=== PATIENT | male | born 1955 | race Caucasian/White ===

== ENCOUNTER 2016-04-08 15:33 | Inpatient (IN) | payer MEDICAID, MEDICARE ==
[~2016-04-08] VITALS: Ht 172.7 cm; Wt 95.7 kg
[~2016-04-08 15:33] MED LIST: ASPIR 8181 MG PO; JANUVIA100 MG PO; KEFLEX250 MG PO; LOPRESSOR25 MG PO; NORCO 5/325 MG1 TAB PO; TRICOR145 MG PO; ZESTRIL20 MG PO; ZOCOR20 MG PO
[2016-04-08 16:07] VITALS: BP 187/111
[2016-04-08] MEDS ORDERED: MICRONASE5 M1 PO (16:14)
[2016-04-08] MEDS ORDERED: ASPIRIN ADULT L81 M1 PO (16:14)
--- NOTE | 2016-04-08 16:25 | NUR ---
PT AMBULATED TO BED 8
[2016-04-08] MEDS ORDERED: fentaNYL 0.05 MG/ML VIAL IVP ONE (16:30)
[2016-04-08] MEDS ORDERED: ASPIRIN 325 MG TAB PO ONE (16:30)
[2016-04-08] MEDS ORDERED: NITROGLYCERIN 0.4 MG TAB SL ONE (16:30)
--- NOTE | 2016-04-08 16:33 | NUR ---
60/M TO ED WITH C/O CHEST PAIN X3 HOURS. PT STATES PAIN IS PRESSURE PAIN 7/10. DENIES SOB. PAIN RADIATING TO NECK. NO EDEMA PRESENT. CAP REFILL < 3 SECS. LUNGS CLEAR BILAT. HR EVEN AND REGULAR. AAOX4. VSS. NO SIGNS OF DISTRESS.
--- NOTE | 2016-04-08 17:23 | NUR ---
DR. BARBER AT BEDSIDE EVALUATING PT AT THIS TIME.
[2016-04-08] MEDS ORDERED: ONDANSETRON 4 MG/2 ML VIAL IVP PRN (17:35)
[2016-04-08] MEDS ORDERED: DEXTROSE 50% 50 ML SYR IVP PRN (17:35)
[2016-04-08] MEDS ORDERED: ACETAMINOPHEN 325 MG TAB PO PRN (17:35)
[2016-04-08] MEDS ORDERED: LORazepam 1 MG TAB PO PRN (17:35)
[2016-04-08] MEDS ORDERED: NITROGLYCERIN 0.4 MG TAB SL PRN (17:35)
[2016-04-08] MEDS ORDERED: ALBUTEROL 0.083% 2.5 MG/3 ML NEBU IH PRN (17:35)
[2016-04-08] MEDS ORDERED: MORPHINE SULFATE 2 MG/ML SYR IVP PRN (17:35)
[2016-04-08] MEDS ORDERED: ZOLPIDEM 5 MG TAB PO PRN (17:35)
--- NOTE | 2016-04-08 18:26 | NUR ---
Patient will be admitted to care of DR LUZ. Admited to TELE. Will go to [id number]. Belongings list completed. Report to TONY.
[2016-04-08] MEDS ORDERED: REGADENOSON 0.4 MG/5 ML SYR IV ONE (18:45)
[2016-04-08 18:47] VITALS: BP 145/84
--- NOTE | 2016-04-08 18:47 | NUR ---
PT ON UNIT. NO S/S OF ACUTE DISTRESS. PT DENIES PAIN. IV SITE PATENT AND INTACT. CALL LIGHT WITHIN REACH. SAFETY MEASURES ENSURED. PT ORIENTED TO ROOM. WILL CONTINUE TO MONITOR.
[2016-04-08] MEDS ORDERED: ISOSORBIDE MONONITRATE 30 MG TABER PO SCH ×2 (18:49→21:00)
--- NOTE | 2016-04-08 19:14 | NUR ---
ENDORSED PLAN OF CARE TO NIGHT RN. PT REMAINS IN STABLE CONDITION.
[2016-04-08] MEDS: IPRATROPIUM 0.02% 0.5 MG/2.5 ML NEBU IH SCH (19:53)
[2016-04-08] MEDS: ALBUTEROL 0.083% 2.5 MG/3 ML NEBU IH SCH (19:54)
[2016-04-08 20:00] VITALS: BP 126/70
[2016-04-08] MEDS ORDERED: ENOXAPARIN 100 MG/ML SYR SUBQ SCH (21:00)
[2016-04-08] MEDS ORDERED: SIMVASTATIN 20 MG TAB PO SCH (21:00)
[2016-04-08] MEDS: METOPROLOL 25 MG TAB PO SCH (21:00)
[2016-04-08] MEDS: BLOOD GLUCOSE MONITORING 1 DEV DEV FS SCH (21:20)
[2016-04-08] MEDS: ISOSORBIDE MONONITRATE 30 MG TABER PO SCH (21:21)
[2016-04-08] MEDS: INSULIN ASPART SLIDING SCALE 100 UNITS/ML VIAL SUBQ PRN (21:23)
--- NOTE | 2016-04-08 21:29 | NUR ---
PM MEDS ADMINISTERED, PATIENT TOLERATED WELL, PT C/O "A LITTLE" CHEST PAIN, ADMINISTERED NITROSTAT SL X2. PATIENT STATES HIS PAIN IS NOW GONE. CALL LIGHT WITHIN REACH WILL CONTINUE TO MONITOR.
--- NOTE | 2016-04-08 21:38 | NUR ---
LOPRESSOR NON ADMINISTERED DT LOW BP 94/55 HR 88
[2016-04-09] VITALS: BP 87/44
[2016-04-09] MEDS ORDERED: PNEUMOCOCCAL VACCINE 23 MCG/0.5 ML VIAL IMVAC PRN
[2016-04-09] MEDS ORDERED: INFLUENZA VIRUS VACCINE QUAD 0.5 ML SYR IMVAC PRN
--- NOTE | 2016-04-09 00:42 | NUR ---
PAGED DR CALERO CANTEEN OPERATOR FOR DR BARBER. PATIENTS BP TAKEN MULTIPLE TIMES AND IS 87/44, 85/49 WITH HR IN THE 80'S. DR CALERO ORDERED 1L NS BOLUS AND AFTER TO HAS PATIENT ON FLUIDS ON NS AT 100ML/H.
[2016-04-09] MEDS: NACL 0.9% 1,000 ML IV SCH ×2 (00:50→10:50)
[2016-04-09] MEDS: IPRATROPIUM 0.02% 0.5 MG/2.5 ML NEBU IH SCH ×2 (00:50→07:53)
[2016-04-09] MEDS ORDERED: NACL 0.9% 1,000 ML IV ONE (00:50)
[2016-04-09] MEDS: ALBUTEROL 0.083% 2.5 MG/3 ML NEBU IH SCH ×2 (00:50→07:53)
--- NOTE | 2016-04-09 02:13 | NUR ---
PAGED DR SMITH NOTIFIED HIM OF PATIENT'S CRITICAL LAB OF [facility] 0.104, DR SMITH GAVE ORDERS TO CANCEL THE LEXISCAN AND HOLD LOVENOX. AND TO ORDER EKG FOR THE AM. WILL FOLLOW UP WITH ORDERS.
--- NOTE | 2016-04-09 03:15 | NUR ---
PATIENT'S BP INCREASED OT 92/54. PATIENT ASYMPTOMATIC, SLEEPING COMFORTABLE. NO SIGN OF DISTRESS, CALL LIGHT WITHIN REACH. WILL CONTINUE TO MONITOR.
[2016-04-09 04:00] VITALS: BP 100/59
--- NOTE | 2016-04-09 04:30 | NUR ---
PATIENT SLEEPING, NO SOB OR SIGN OF DISTRESS. CALL LIGHT WITHIN REACH. WILL CONTINUE TO MONITOR. VITAL SIGNS STABLE, PATIENT'S BP IS 100/59 HR 87.
--- NOTE | 2016-04-09 06:00 | NUR ---
PATIENT SLEEPING, NO SOB OR SIGN OF DISTRESS, CALL LIGHT WITHIN REACH. WILL CONTINUE TO MONITOR.
--- NOTE | 2016-04-09 07:40 | NUR ---
ENDORSED PATIENT TO DAY SHIFT RN, PATIENT IN STABLE CONDITION RESTING IN BED. IVF INFUSING WELL.
[2016-04-09] MEDS: INSULIN ASPART SLIDING SCALE 100 UNITS/ML VIAL SUBQ PRN (07:51)
[2016-04-09] MEDS: BLOOD GLUCOSE MONITORING 1 DEV DEV FS SCH ×2 (07:52→11:23)
[2016-04-09 08:00] VITALS: BP 114/67
[2016-04-09] MEDS: ASPIRIN 81 MG TAB.CHEW PO SCH ×2 (08:00→09:00)
--- NOTE | 2016-04-09 08:00 | NUR ---
RECEIVED REPORT FROM CHARGE NURSE. PT RESTING IN BED. AAOX4. NO S/S OF ACUTE DISTRESS. PT DENIES PAIN. IV SITE PATENT AND INTACT. CALL LIGHT WITHIN REACH. SAFETY MEASURES ENSURED. WILL CONTINUE TO MONITOR.
[2016-04-09] MEDS: ISOSORBIDE MONONITRATE 30 MG TABER PO SCH (08:31)
[2016-04-09] MEDS: METOPROLOL 25 MG TAB PO SCH (08:31)
--- NOTE | 2016-04-09 08:54 | NUR ---
CALLED AND SPOKE WITH PT'S DAUGHTER LAKESHIA REGARDING PT'S TRANSFER TO [facility]. DAUGHTER VERBALIZES UNDERSTANDING.
[2016-04-09 08:58] VITALS: BP 114/62
[2016-04-09] MEDS ORDERED: DOCUSATE SODIUM 100 MG GELCAP PO SCH (09:00)
[2016-04-09] MEDS ORDERED: LISINOPRIL 5 MG TAB PO SCH (09:00)
[2016-04-09] MEDS ORDERED: LISINOPRIL 20 MG TAB PO SCH (09:00)
[2016-04-09] MEDS ORDERED: SIMVASTATIN 20 MG TAB PO SCH (09:00)
--- NOTE | 2016-04-09 09:18 | NUR ---
DR. SMITH IN TO SEE PT. PT MADE AWARE OF TRANSFER TO [facility] AND UPCOMING PROCEDURE. PT VERBALIZED UNDERSTANDING. REPORT GIVEN TO PREMA ZHENG AT [facility].
--- NOTE | 2016-04-09 09:21 | NUR ---
PATIENT HAS BEEN SCREENED AND CATEGORIZED HIGH NUTRITION RISK. PATIENT WILL BE SEEN WITHIN 1-2 DAYS OF ADMISSION. 04/09/16-04/10/[address]
--- NOTE | 2016-04-09 09:55 | NUR ---
RECEIVED ORDER FOR PATIENT TO GO TO [facility] FOR CARDIAC CATH. I CALLED LIA AT [facility] AND SHE SAID SHE HAD THE FACE SHEET AND HE SHOULD GET THERE BY 12:30P.M. SHE SAID SHE WOULD NEED AUTH FROM [facility]. I FAXED HER THE INFORMATION SHE NEEDED INCLUDING THE ORDER. I PUT A CALL IN TO STEFAN ROJO, . WAITING FOR CALL BACK. FAXED INITIAL REVIEW TO [facility] [phone] PHONE STEFAN [phone].
--- NOTE | 2016-04-09 10:07 | NUR ---
PT RESTING IN BED. NO S/S OF ACUTE DISTRESS. PT DENIES PAIN. CALL LIGHT WITHIN REACH. WILL CONTINUE TO MONITOR.
--- NOTE | 2016-04-09 10:38 | NUR ---
CALLED [facility] AND SPOKE WITH SIDNEY, PEDORTHIST. THE AUTH FOR [facility] IS [id number]. THE AUTH FOR [facility] IS [id number]. I CALLED DARIUS TO [facility] BRUSH MAKER MACHINE AND GAVE HER THE AUTH NUMBER. I CALLED [facility] AND SET UP TRANSPORT,ALS, FOR 12:00 P.M. (NOON). JOCELYNE ZHENGGLAUCOMA SPECIALIST NURSE AWARE.
[2016-04-09 10:44] VITALS: BP 114/62
--- NOTE | 2016-04-09 10:51 | NUR ---
ENDORSED PLAN OF CARE TO RN. PT REMAINS IN STABLE CONDITION.
--- NOTE | 2016-04-09 11:15 | NUR ---
ADMINISTERED FLU AND PNA VACCINE. WILL REASSESS FOR ANY ADVERSE REACTION.
[2016-04-09] MEDS ORDERED: INSULIN ASPART, RECOMBINANT 100 UNITS/ML VIAL SUBQ SCH (11:42)
[2016-04-09 12:00] VITALS: BP 113/68
--- NOTE | 2016-04-09 12:05 | NUR ---
BS 422, NOTIFIED DR BARBER BY TELEPHONE. INSULIN ASPART 14 UNITS GIVEN SUBQ AT THIS TIME ORDERED WITH EDUCATION, PT TOLERATED WELL.
--- NOTE | 2016-04-09 12:10 | NUR ---
TRANSFERRED PT TO [facility] AT THIS TIME VIA [facility], VSS, STABLE CONDITION.
[2016-04-09] MEDS ORDERED: REGADENOSON 0.4 MG/5 ML SYR IV ONE (12:35)
== END 2016-04-09 12:10 | disposition short-term general hospital (02) | DRG 281 ==
LOC: MED 15:33 → MTU 17:30
PROVIDERS: ADMIT Hospitalist; ATTEND Hospitalist
DX: I21.4 Non-ST elevation (NSTEMI) myocardial infarction (principal); I13.0 Hypertensive heart and chronic kidney disease with heart failure and stage 1 through stage 4 chronic kidney disease, or unspecified chronic kidney disease; N18.9 Chronic kidney disease, unspecified; E11.65 Type 2 diabetes mellitus with hyperglycemia; E11.22 Type 2 diabetes mellitus with diabetic chronic kidney disease; E78.5 Hyperlipidemia, unspecified; I25.10 Atherosclerotic heart disease of native coronary artery without angina pectoris; I50.9 Heart failure, unspecified; I25.2 Old myocardial infarction; Z79.899 Other long term (current) drug therapy; Z83.3 Family history of diabetes mellitus

== ENCOUNTER 2017-06-17 15:06 | Emergency (ER) | payer MEDICARE ==
[~2017-06-17] VITALS: Ht 172.7 cm; Wt 92.1 kg
[~2017-06-17 15:06] MED LIST changes: -ASPIR 8181 MG PO; +FENO145T PO; -JANUVIA100 MG PO; -KEFLEX250 MG PO; +LISI-420 PO; -LOPRESSOR25 MG PO; +METO25TA PO; +MIC5 PO; -NORCO 5/325 MG1 TAB PO; +SIMV20TA1 PO; +SITA100T8 PO; -TRICOR145 MG PO; -ZESTRIL20 MG PO; -ZOCOR20 MG PO
[2017-06-17 15:19] VITALS: BP 157/86
[2017-06-17] MEDS ORDERED: CARV3.12 PO (15:24)
[2017-06-17] MEDS ORDERED: ISOS20TA13 PO (15:24)
[2017-06-17] MEDS ORDERED: ASPI81CT89 PO (15:24)
[2017-06-17] MEDS ORDERED: IBUPROFEN 600 MG TAB PO ONE (16:05)
[2017-06-17 16:09] LABS: APPEARANCE,URINE CLEAR (CLEAR); BILIRUBIN,URINE NEGATIVE (NEGATIVE); BLOOD, URINE NEGATIVE (NEGATIVE); COLOR,URINE YELLOW (YELLOW); LEUKOCYTE ESTERASE ,URINE TRACE (NEGATIVE); NITRITE, URINE NEGATIVE (NEGATIVE); UGLUCOSE 3+ (NEGATIVE)
[2017-06-17 16:23] LABS: RBC,URINE 0-5 (RARE) /HPF (0-5)
[2017-06-17 17:06] VITALS: BP 148/82
== END 2017-06-17 17:06 | disposition home or self-care (01) ==
LOC: MED 15:06
DX: N39.0 Urinary tract infection, site not specified (principal); E11.9 Type 2 diabetes mellitus without complications; I10 Essential (primary) hypertension
CPT/HCPCS: 72100; 81001; 87086; 99285

== ENCOUNTER 2022-12-04 00:11 | Inpatient (IN) | payer MEDICARE, OTHER ==
[~2022-12-04] VITALS: Ht 182.9 cm; Wt 90.7 kg
[2022-12-04] VITALS (14 sets, daily range): BP systolic 93–186; BP diastolic 42–97; PULSE 60–118; RESP 16–44; TEMP 96.8–98.2; O2SAT 93–99
[~2022-12-04 00:11] MED LIST changes: +ASPI-1822 PO; +CARV3.12 PO; +GLYB5TAB PO; +ISOS20TA13 PO; -LISI-420 PO; +LISI-487 PO; -METO25TA PO; -MIC5 PO; +SIMV-372 PO; -SIMV20TA1 PO
[2022-12-04 00:34] LABS: BASOPHILS # (AUTO) 0.2 K/uL (0.00-0.22); EOSINOPHILS # (AUTO) 0.2 K/uL (0-0.4); EOSINOPHILS % (AUTO) 1.3 % (0.0-4.0); HEMOGLOBIN 10.8 g/dL (12.0-18.0); LYMPHOCYTES # (AUTO) 3.3 K/uL (2.0-11.5); LYMPHOCYTES % (AUTO) 21.7 % (20.5-51.1); MEAN CORPUSCULAR HEMOGLOBIN 31 pg (27-31); MEAN CORPUSCULAR HGB CONC 33 g/dL (33-37); MEAN CORPUSCULAR VOLUME 93.2 fL (80-94); NEUTROPHILS # (AUTO) 10.4 K/uL (1.8-7.7); PLATELET COUNT (AUTO) 325 K/uL (140-450); RED BLOOD CELL COUNT(AUTO) 3.54 MIL/uL (4.20-6.10); RED CELL DISTRIBUTION WIDTH 14.6 % (11.6-13.7)
[2022-12-04] MEDS ORDERED: NITROGLYCERIN 50 MG/D5W PREMIX 250 ML IV ONE (00:40)
[2022-12-04] MEDS ORDERED: AZITHROMYCIN 500 MG in DEXTROSE 5% 250 ML IV ONE (00:45)
[2022-12-04] MEDS ORDERED: MORPHINE SULFATE 2 MG/ML SYR IVP ONE (00:50)
[2022-12-04 00:51] LABS: ALBUMIN 4.1 g/dL (3.4-5.0); ANION GAP 14.2 (8-16); CALCIUM 9.3 mg/dL (8.5-10.1); CARBON DIOXIDE 22.4 mmol/L (21-32); CREATININE 1.6 mg/dL (0.6-1.3); POTASSIUM 4.6 mmol/L (3.5-5.1); TOTAL BILIRUBIN 0.5 mg/dL (0.0-1.0); TOTAL PROTEIN, SERUM 8.6 g/dL (6.4-8.2)
[2022-12-04 00:56] LABS: FLU A ANTIGEN negative (NEGATIVE); FLU B ANTIGEN NEGATIVE (NEGATIVE)
[2022-12-04] MEDS ORDERED: cefTRIAXone 1,000 MG VIAL ONE (00:56)
[2022-12-04 00:58] LABS: LACTIC ACID 2.8 mmol/L (0.4-2.0)
[2022-12-04] MEDS ORDERED: ASPIRIN 81 MG TAB.CHEW PO ONE (01:00)
[2022-12-04] MEDS ORDERED: AZITHROMYCIN 500 MG INJ VIAL IV ONE (01:19)
[2022-12-04] MEDS ORDERED: ATOR40TA40 PO (01:44)
[2022-12-04] MEDS ORDERED: INSU500S1 SQ (01:44)
[2022-12-04] MEDS ORDERED: METF-352 PO (01:44)
[2022-12-04] MEDS ORDERED: SACU1TAB PO (01:44)
[2022-12-04] MEDS ORDERED: ACETAMINOPHEN EXTRA STRENGTH 500 MG TAB PO ONE (02:05)
[2022-12-04] MEDS ORDERED: POTASSIUM CHLORIDE 10 MEQ TABER PO PRN (03:55)
[2022-12-04] MEDS ORDERED: MORPHINE SULFATE 4 MG/ML SYR IVP PRN (03:55)
[2022-12-04] MEDS ORDERED: HYDROcodone/APAP 5/325 MG 1 TAB TAB PO PRN (03:55)
[2022-12-04] MEDS ORDERED: ACETAMINOPHEN 325 MG TAB PO PRN (03:55)
[2022-12-04] MEDS: AZITHROMYCIN 500 MG in DEXTROSE 5% 250 ML IV SCH (03:55)
[2022-12-04] MEDS ORDERED: ONDANSETRON 4 MG/2 ML VIAL IVP PRN (03:55)
[2022-12-04] MEDS: ALBUTEROL SULFATE/IPRATROPIU 3 ML SOL IH SCH ×3 (07:09→19:27)
[2022-12-04] MEDS ORDERED: HEPARIN PER PHARMACY MC PRN (08:15)
[2022-12-04 08:17] LABS: BLOOD GAS HCO3 21.5 mmol/L (22-26); BLOOD GAS O2 SAT% 95.9 % (92.0-98.5); BLOOD GAS PCO2 31.8 mmHg (35-45); BLOOD GAS PO2 76.1 mmHg (75-100)
[2022-12-04 08:20] LABS: BLOOD GAS PH 7.448 (7.35-7.45)
[2022-12-04] MEDS ORDERED: methylPREDNISolone SS 125 MG/2 ML VIAL IVP SCH (09:00)
[2022-12-04 10:18] LABS: INR 1.05 (0.8-1.2); PARTIAL THROMBOPLASTIN TIME 23.5 secs (22-35.6)
[2022-12-04] MEDS: FUROSEMIDE 40 MG/4 ML VIAL IVP SCH ×2 (10:59→20:31)
[2022-12-04] MEDS: hePARIN / DEXT 5% PREMIX 250 ML IV SCH ×2 (11:25→18:21)
[2022-12-04 16:24] LABS: APPEARANCE,URINE CLEAR (CLEAR); BILIRUBIN,URINE NEGATIVE (NEGATIVE); BLOOD, URINE NEGATIVE (NEGATIVE); COLOR,URINE YELLOW (YELLOW); LEUKOCYTE ESTERASE ,URINE NEGATIVE (NEGATIVE); NITRITE, URINE NEGATIVE (NEGATIVE); PROTEIN,URINE NEGATIVE (NEGATIVE); UGLUCOSE NEGATIVE (NEGATIVE); UROBILINOGEN,URINE 0.2 EU/dL (0.2 - 1)
[2022-12-04 17:13] LABS: URINE TOTAL PROTEIN 3.9 mg/dL (0-12); URINE TPRO CREAT RATIO 0.2 (0-0.20)
[2022-12-04 17:26] LABS: INR 1.19 (0.8-1.2); PARTIAL THROMBOPLASTIN TIME 33.6 secs (22-35.6); PROTHROMBIN TIME 12.4 secs (10.8-13.4)
[2022-12-05] VITALS (10 sets, daily range): BP systolic 102–126; BP diastolic 51–68; PULSE 76–90; RESP 16–18; TEMP 97.1–98.6; O2SAT 92–98
[2022-12-05] MEDS: ALBUTEROL SULFATE/IPRATROPIU 3 ML SOL IH SCH ×4 (01:34→19:00)
[2022-12-05] MEDS: hePARIN / DEXT 5% PREMIX 250 ML IV SCH ×4 (01:50→23:25)
[2022-12-05] MEDS: AZITHROMYCIN 500 MG in DEXTROSE 5% 250 ML IV SCH (03:56)
[2022-12-05 06:50] LABS: BASOPHILS % (AUTO) 0.1 % (0.0-2.0); HEMATOCRIT 25.4 % (36-52); HEMOGLOBIN 8.3 g/dL (12.0-18.0); LYMPHOCYTES # (AUTO) 0.7 K/uL (2.0-11.5); LYMPHOCYTES % (AUTO) 8.9 % (20.5-51.1); MEAN CORPUSCULAR HEMOGLOBIN 30 pg (27-31); MEAN CORPUSCULAR HGB CONC 33 g/dL (33-37); MEAN CORPUSCULAR VOLUME 92.6 fL (80-94); MONOCYTES # (AUTO) 0.7 K/uL (0.8-1.0); MONOCYTES % (AUTO) 8.8 % (1.7-9.3); NEUTROPHILS # (AUTO) 6.7 K/uL (1.8-7.7); NEUTROPHILS % (AUTO) 82.2 % (42.2-75.2); PLATELET COUNT (AUTO) 225 K/uL (140-450); RED BLOOD CELL COUNT(AUTO) 2.74 MIL/uL (4.20-6.10); WHITE BLOOD COUNT (AUTO) 8.2 K/uL (4.8-10.8)
[2022-12-05 07:06] LABS: ALBUMIN 3.2 g/dL (3.4-5.0); CALCIUM 8.9 mg/dL (8.5-10.1); CARBON DIOXIDE 20.9 mmol/L (21-32); CREATININE 2.3 mg/dL (0.6-1.3); MAGNESIUM 2.3 mg/dL (1.8-2.4); POTASSIUM 4.9 mmol/L (3.5-5.1); TOTAL BILIRUBIN 0.3 mg/dL (0.0-1.0); TOTAL PROTEIN, SERUM 7.3 g/dL (6.4-8.2)
[2022-12-05] MEDS ORDERED: DEXTROSE 50% 50 ML SYR IVP PRN (07:35)
[2022-12-05] MEDS ORDERED: INSULIN LISPRO 100 UNITS/ML VIAL SUBQ SCH ×2 (08:30→12:00)
[2022-12-05] MEDS: predniSONE 20 MG TAB PO SCH (08:57)
[2022-12-05] MEDS: FUROSEMIDE 40 MG/4 ML VIAL IVP SCH (08:57)
[2022-12-05] MEDS: INSULIN LANTUS 100 UNITS/ML 10 ML VIAL SUBQ SCH (09:01)
[2022-12-05] MEDS: BLOOD GLUCOSE MONITORING 1 DEV DEV FS SCH ×3 (12:14→20:19)
[2022-12-05] MEDS: ALBUMIN HUMAN 25% 100 ML IV SCH ×2 (12:17→20:25)
[2022-12-05] MEDS: INSULIN LISPRO 100 UNITS/ML VIAL SUBQ SCH ×2 (12:27→16:42)
[2022-12-05] MEDS: INSULIN LISPRO SLIDING SCALE 100 UNITS/ML VIAL SUBQ PRN ×3 (12:32→21:10)
[2022-12-05] MEDS ORDERED: INSULIN LISPRO 100 UNITS/ML VIAL SUBQ ONE (13:00)
[2022-12-05] MEDS: ATORVASTATIN 20 MG TAB PO SCH (20:23)
[2022-12-05] MEDS: carvediloL 3.125 MG TAB PO SCH (20:23)
[2022-12-06] VITALS (10 sets, daily range): BP systolic 113–121; BP diastolic 62–67; PULSE 73–89; RESP 15–18; TEMP 97.1–98.7; O2SAT 92–97
[2022-12-06] MEDS: ALBUTEROL SULFATE/IPRATROPIU 3 ML SOL IH SCH ×4 (00:45→18:59)
[2022-12-06] MEDS: hePARIN / DEXT 5% PREMIX 250 ML IV SCH ×2 (04:10→05:36)
[2022-12-06] MEDS: AZITHROMYCIN 500 MG in DEXTROSE 5% 250 ML IV SCH (04:14)
[2022-12-06 05:14] LABS: BASOPHILS % (AUTO) 0.6 % (0.0-2.0); HEMATOCRIT 23.3 % (36-52); HEMOGLOBIN 7.9 g/dL (12.0-18.0); LYMPHOCYTES # (AUTO) 1.5 K/uL (2.0-11.5); LYMPHOCYTES % (AUTO) 20.3 % (20.5-51.1); MEAN CORPUSCULAR HEMOGLOBIN 31 pg (27-31); MEAN CORPUSCULAR HGB CONC 34 g/dL (33-37); MONOCYTES % (AUTO) 12.5 % (1.7-9.3); NEUTROPHILS # (AUTO) 5.1 K/uL (1.8-7.7); NEUTROPHILS % (AUTO) 66.6 % (42.2-75.2); PLATELET COUNT (AUTO) 227 K/uL (140-450); RED BLOOD CELL COUNT(AUTO) 2.56 MIL/uL (4.20-6.10); RED CELL DISTRIBUTION WIDTH 14.3 % (11.6-13.7); WHITE BLOOD COUNT (AUTO) 7.6 K/uL (4.8-10.8)
[2022-12-06] MEDS: ALBUMIN HUMAN 25% 100 ML IV SCH (05:25)
[2022-12-06 05:37] LABS: ALBUMIN 3.8 g/dL (3.4-5.0); ANION GAP 13.7 (8-16); CARBON DIOXIDE 24.7 mmol/L (21-32); MAGNESIUM 2.8 mg/dL (1.8-2.4); POTASSIUM 4.4 mmol/L (3.5-5.1); TOTAL BILIRUBIN 0.4 mg/dL (0.0-1.0); TOTAL PROTEIN, SERUM 7.6 g/dL (6.4-8.2)
[2022-12-06] MEDS: BLOOD GLUCOSE MONITORING 1 DEV DEV FS SCH ×4 (06:31→20:36)
[2022-12-06] MEDS: INSULIN LISPRO SLIDING SCALE 100 UNITS/ML VIAL SUBQ PRN ×4 (06:40→20:32)
[2022-12-06] MEDS: FUROSEMIDE 40 MG/4 ML VIAL IVP SCH (08:56)
[2022-12-06] MEDS: carvediloL 3.125 MG TAB PO SCH ×2 (08:57→20:34)
[2022-12-06] MEDS: predniSONE 20 MG TAB PO SCH (08:58)
[2022-12-06] MEDS ORDERED: FUROSEMIDE 40 MG/4 ML VIAL IVP SCH (09:00)
[2022-12-06] MEDS: INSULIN LISPRO 100 UNITS/ML VIAL SUBQ SCH ×3 (09:00→17:20)
[2022-12-06] MEDS: INSULIN LANTUS 100 UNITS/ML 10 ML VIAL SUBQ SCH (09:01)
[2022-12-06] MEDS: ATORVASTATIN 20 MG TAB PO SCH (20:36)
[2022-12-07] VITALS (8 sets, daily range): BP systolic 107–120; BP diastolic 59–68; PULSE 64–83; RESP 15–20; TEMP 96.8–98.1; O2SAT 90–97
[2022-12-07] MEDS: hePARIN / DEXT 5% PREMIX 250 ML IV SCH (00:32)
[2022-12-07] MEDS: ALBUTEROL SULFATE/IPRATROPIU 3 ML SOL IH SCH ×3 (00:45→13:12)
[2022-12-07] MEDS: AZITHROMYCIN 500 MG in DEXTROSE 5% 250 ML IV SCH (04:03)
[2022-12-07 06:01] LABS: ALBUMIN 3.8 g/dL (3.4-5.0); CALCIUM 9.4 mg/dL (8.5-10.1); CARBON DIOXIDE 24.3 mmol/L (21-32); CREATININE 1.8 mg/dL (0.6-1.3); MAGNESIUM 2.8 mg/dL (1.8-2.4); POTASSIUM 4.3 mmol/L (3.5-5.1); TOTAL BILIRUBIN 0.6 mg/dL (0.0-1.0); TOTAL PROTEIN, SERUM 7.6 g/dL (6.4-8.2)
[2022-12-07 06:21] LABS: BASOPHILS % (AUTO) 0.3 % (0.0-2.0); EOSINOPHILS % (AUTO) 0.2 % (0.0-4.0); HEMATOCRIT 24.6 % (36-52); HEMOGLOBIN 8.1 g/dL (12.0-18.0); LYMPHOCYTES # (AUTO) 2.3 K/uL (2.0-11.5); MEAN CORPUSCULAR HEMOGLOBIN 30 pg (27-31); MEAN CORPUSCULAR HGB CONC 33 g/dL (33-37); MEAN CORPUSCULAR VOLUME 91.7 fL (80-94); MONOCYTES # (AUTO) 0.8 K/uL (0.8-1.0); MONOCYTES % (AUTO) 9.8 % (1.7-9.3); NEUTROPHILS % (AUTO) 61.7 % (42.2-75.2); PLATELET COUNT (AUTO) 221 K/uL (140-450); RED BLOOD CELL COUNT(AUTO) 2.69 MIL/uL (4.20-6.10); RED CELL DISTRIBUTION WIDTH 14.3 % (11.6-13.7)
[2022-12-07] MEDS: INSULIN LISPRO SLIDING SCALE 100 UNITS/ML VIAL SUBQ PRN ×3 (06:48→17:35)
[2022-12-07] MEDS: BLOOD GLUCOSE MONITORING 1 DEV DEV FS SCH ×3 (06:50→17:20)
[2022-12-07] MEDS ORDERED: ECOTRIN 81 MG TABEC PO SCH (09:00)
[2022-12-07] MEDS: carvediloL 3.125 MG TAB PO SCH (09:55)
[2022-12-07] MEDS: predniSONE 20 MG TAB PO SCH (09:55)
[2022-12-07] MEDS: INSULIN LISPRO 100 UNITS/ML VIAL SUBQ SCH ×3 (09:57→17:34)
[2022-12-07] MEDS: INSULIN LANTUS 100 UNITS/ML 10 ML VIAL SUBQ SCH (10:00)
[2022-12-07] MEDS: FUROSEMIDE 40 MG/4 ML VIAL IVP SCH (10:08)
[2022-12-07] MEDS ORDERED: FURO-570 PO (13:05)
[2022-12-07] MEDS ORDERED: CARV3.122 PO (13:05)
[2022-12-07] MEDS ORDERED: CEFP200T20 PO (13:05)
[2022-12-07] MEDS ORDERED: ALBU0.0912 INH (13:05)
[2022-12-07] MEDS ORDERED: POTA10TA70 PO (13:05)
[2022-12-07] MEDS ORDERED: TIOT4MIS2 IH (13:05)
== END 2022-12-07 19:00 | disposition home health service (06) | DRG 871 ==
LOC: MED 00:11 → MTU 03:54
PROVIDERS: ADMIT Student in an Organized Health Care Education/Training Program; ATTEND Student in an Organized Health Care Education/Training Program
PROC: 5A09357 Assistance with Respiratory Ventilation, Less than 24 Consecutive Hours, Continuous Positive Airway Pressure (ICD-10-PCS; principal; 2022-12-04)
DX: A41.9 Sepsis, unspecified organism (principal); I21.A1 Myocardial infarction type 2; I50.23 Acute on chronic systolic (congestive) heart failure; J96.01 Acute respiratory failure with hypoxia; J18.9 Pneumonia, unspecified organism; I13.0 Hypertensive heart and chronic kidney disease with heart failure and stage 1 through stage 4 chronic kidney disease, or unspecified chronic kidney disease; N17.9 Acute kidney failure, unspecified; I42.0 Dilated cardiomyopathy; Z20.822 Contact with and (suspected) exposure to COVID-19; I25.10 Atherosclerotic heart disease of native coronary artery without angina pectoris; E11.22 Type 2 diabetes mellitus with diabetic chronic kidney disease; N18.9 Chronic kidney disease, unspecified; E78.5 Hyperlipidemia, unspecified; G47.30 Sleep apnea, unspecified; E66.9 Obesity, unspecified; Z68.27 Body mass index [BMI] 27.0-27.9, adult; Z95.0 Presence of cardiac pacemaker; Z79.899 Other long term (current) drug therapy; Z79.82 Long term (current) use of aspirin
CPT/HCPCS: 36415; 36600; 71045; 71250; 76770; 80053; 81003; 82570; 82803; 82948; 83605; 83735; 83880; 84484; 85025; 85610; 85730; 87040; 87081; 93005; 94640; 94660; 96365; 96375; 97116; 97163-GP; 99291; J0456; J0696; J1644; J1815; J1940; J2270; J2930; J3490; J7060; J7512; P9046; Q0092

== ENCOUNTER 2023-02-28 13:50 | Inpatient (IN) | payer OTHER ==
[~2023-02-28] VITALS: Ht 182.9 cm; Wt 113.4 kg
[~2023-02-28 13:50] MED LIST changes: +ALBU0.0912 INH; +ATOR40TA40 PO; -CARV3.12 PO; +CARV3.122 PO; +CEFP200T20 PO; -FENO145T PO; +FURO-570 PO; -GLYB5TAB PO; +INSU500S1 SQ; -ISOS20TA13 PO; -LISI-487 PO; +METF-352 PO; +POTA10TA70 PO; -SIMV-372 PO; +TIOT4MIS2 IH
[2023-02-28 14:06] VITALS: BP 131/69; PULSE 81; RESP 20; TEMP 100; O2SAT 96
[2023-02-28 16:58] LABS: BLOOD GAS PCO2 28.3 mmHg (35-45); BLOOD GAS PH 7.465 (7.35-7.45)
[2023-02-28 16:59] LABS: BLOOD GAS BASE EXCESS -2.9 mmol/L (-2.0-2.0); BLOOD GAS HCO3 19.9 mmol/L (22-26); BLOOD GAS O2 SAT% 89.4 % (92.0-98.5); BLOOD GAS PO2 55.3 mmHg (75-100)
[2023-02-28 17:12] LABS: BASOPHILS # (AUTO) 0.1 K/uL (0.00-0.22); BASOPHILS % (AUTO) 0.8 % (0.0-2.0); EOSINOPHILS # (AUTO) 0.2 K/uL (0-0.4); EOSINOPHILS % (AUTO) 1.8 % (0.0-4.0); HEMATOCRIT 29.7 % (36-52); HEMOGLOBIN 10.2 g/dL (12.0-18.0); LYMPHOCYTES # (AUTO) 2.5 K/uL (2.0-11.5); LYMPHOCYTES % (AUTO) 28.1 % (20.5-51.1); MEAN CORPUSCULAR HEMOGLOBIN 30 pg (27-31); MEAN CORPUSCULAR HGB CONC 34 g/dL (33-37); MEAN CORPUSCULAR VOLUME 86.7 fL (80-94); MONOCYTES % (AUTO) 11.6 % (1.7-9.3); NEUTROPHILS # (AUTO) 5.1 K/uL (1.8-7.7); NEUTROPHILS % (AUTO) 57.7 % (42.2-75.2); PLATELET COUNT (AUTO) 243 K/uL (140-450); RED BLOOD CELL COUNT(AUTO) 3.43 MIL/uL (4.20-6.10); RED CELL DISTRIBUTION WIDTH 15.3 % (11.6-13.7); WHITE BLOOD COUNT (AUTO) 8.9 K/uL (4.8-10.8)
[2023-02-28 17:20] LABS: ANION GAP 15.9 (8-16); CALCIUM 9.6 mg/dL (8.5-10.1); CARBON DIOXIDE 24.4 mmol/L (21-32); CREATININE 1.2 mg/dL (0.6-1.3); POTASSIUM 4.3 mmol/L (3.5-5.1)
[2023-02-28 17:27] LABS: LACTIC ACID 1.5 mmol/L (0.4-2.0)
[2023-02-28 17:33] LABS: ALANINE AMINOTRANSFERASE 42 U/L (12-78); ALBUMIN 3.8 g/dL (3.4-5.0); ALKALINE PHOSPHATASE 102 U/L (50-136); ASPARTATE AMINOTRANSFERASE 40 U/L (15-37); BILIRUBIN,DIRECT 0.2 mg/dL (0.0-0.3); TOTAL BILIRUBIN 0.7 mg/dL (0.0-1.0)
[2023-02-28] MEDS ORDERED: FUROSEMIDE 20 MG/2 ML VIAL IVP ONE (17:50)
[2023-02-28] MEDS ORDERED: ASPIRIN 81 MG TAB.CHEW PO ONE (17:50)
[2023-02-28] MEDS ORDERED: MAG SULF 2000 MG/WATER PREMIX 50 ML IV PRN (18:20)
[2023-02-28] MEDS ORDERED: POTASSIUM CHLORIDE 10 MEQ TABER PO PRN (18:20)
[2023-02-28] MEDS ORDERED: MAGNESIUM OXIDE 400 MG TAB PO PRN (18:20)
[2023-02-28] MEDS ORDERED: ACETAMINOPHEN 325 MG TAB PO PRN (18:20)
[2023-02-28] MEDS ORDERED: KCL 20 MEQ IN 100 mL PREMIX 200 ML IV PRN (18:20)
[2023-02-28] MEDS ORDERED: ONDANSETRON 4 MG/2 ML VIAL IVP PRN (18:20)
[2023-02-28] MEDS ORDERED: HYDROcodone/APAP 5/325 MG 1 TAB TAB PO PRN (18:20)
[2023-02-28] MEDS ORDERED: MORPHINE SULFATE 4 MG/ML SYR IVP PRN (18:20)
[2023-02-28] MEDS ORDERED: LOSA-269 PO (18:38)
[2023-02-28] MEDS ORDERED: FENO160T9 PO (18:38)
[2023-02-28] MEDS ORDERED: GLIP10TE PO (18:40)
[2023-02-28] MEDS ORDERED: CLOP75TA55 PO (18:44)
[2023-02-28] MEDS ORDERED: CHOL50005 PO (18:44)
[2023-02-28 19:21] VITALS: O2SAT 97
[2023-02-28 20:34] VITALS: BP 134/80; PULSE 79; PULSE 80; RESP 20; TEMP 98.8; O2SAT 96
[2023-02-28 20:41] VITALS: PULSE 97
[2023-02-28 21:15] VITALS: PULSE 77; RESP 18; O2SAT 97
[2023-03-01] VITALS (8 sets, daily range): BP systolic 123–136; BP diastolic 68–82; PULSE 76–88; RESP 18–20; TEMP 98.1–98.9; O2SAT 94–99
[2023-03-01 06:23] LABS: BASOPHILS # (AUTO) 0.1 K/uL (0.00-0.22); BASOPHILS % (AUTO) 0.8 % (0.0-2.0); EOSINOPHILS # (AUTO) 0.2 K/uL (0-0.4); HEMATOCRIT 27.2 % (36-52); HEMOGLOBIN 9.4 g/dL (12.0-18.0); LYMPHOCYTES # (AUTO) 2.1 K/uL (2.0-11.5); LYMPHOCYTES % (AUTO) 30.8 % (20.5-51.1); MEAN CORPUSCULAR HEMOGLOBIN 30 pg (27-31); MEAN CORPUSCULAR HGB CONC 34 g/dL (33-37); MEAN CORPUSCULAR VOLUME 86.3 fL (80-94); MONOCYTES # (AUTO) 0.8 K/uL (0.8-1.0); MONOCYTES % (AUTO) 11.4 % (1.7-9.3); NEUTROPHILS # (AUTO) 3.6 K/uL (1.8-7.7); PLATELET COUNT (AUTO) 220 K/uL (140-450); RED BLOOD CELL COUNT(AUTO) 3.15 MIL/uL (4.20-6.10); RED CELL DISTRIBUTION WIDTH 15.9 % (11.6-13.7); WHITE BLOOD COUNT (AUTO) 6.8 K/uL (4.8-10.8)
[2023-03-01 06:41] LABS: MAGNESIUM 2.1 mg/dL (1.8-2.4); PHOSPHORUS 6.1 mg/dL (2.5-4.9)
[2023-03-01 06:51] LABS: ANION GAP 15.7 (8-16); CARBON DIOXIDE 23.9 mmol/L (21-32); CREATININE 1.3 mg/dL (0.6-1.3); POTASSIUM 4.6 mmol/L (3.5-5.1)
[2023-03-01] MEDS: FUROSEMIDE 40 MG/4 ML VIAL IVP SCH ×2 (08:34→17:00)
[2023-03-01] MEDS: ALBUTEROL SULFATE/IPRATROPIU 3 ML SOL IH SCH ×2 (12:39→19:34)
[2023-03-01] MEDS: carvediloL 3.125 MG TAB PO SCH (20:40)
[2023-03-02] VITALS (7 sets, daily range): BP systolic 115–128; BP diastolic 69–74; PULSE 69–90; RESP 16–18; TEMP 97.9–98; O2SAT 94–98
[2023-03-02] MEDS: ALBUTEROL SULFATE/IPRATROPIU 3 ML SOL IH SCH ×2 (02:42→08:16)
[2023-03-02 05:50] LABS: BASOPHILS # (AUTO) 0.1 K/uL (0.00-0.22); BASOPHILS % (AUTO) 1.2 % (0.0-2.0); EOSINOPHILS # (AUTO) 0.2 K/uL (0-0.4); EOSINOPHILS % (AUTO) 3.8 % (0.0-4.0); HEMATOCRIT 27.3 % (36-52); HEMOGLOBIN 9.4 g/dL (12.0-18.0); LYMPHOCYTES # (AUTO) 2.2 K/uL (2.0-11.5); LYMPHOCYTES % (AUTO) 34.9 % (20.5-51.1); MEAN CORPUSCULAR HEMOGLOBIN 30 pg (27-31); MEAN CORPUSCULAR HGB CONC 35 g/dL (33-37); MEAN CORPUSCULAR VOLUME 87.2 fL (80-94); MONOCYTES # (AUTO) 0.7 K/uL (0.8-1.0); MONOCYTES % (AUTO) 11.6 % (1.7-9.3); NEUTROPHILS # (AUTO) 3.1 K/uL (1.8-7.7); NEUTROPHILS % (AUTO) 48.5 % (42.2-75.2); PLATELET COUNT (AUTO) 224 K/uL (140-450); RED BLOOD CELL COUNT(AUTO) 3.13 MIL/uL (4.20-6.10); RED CELL DISTRIBUTION WIDTH 16.2 % (11.6-13.7); WHITE BLOOD COUNT (AUTO) 6.3 K/uL (4.8-10.8)
[2023-03-02 06:30] LABS: MAGNESIUM 2.3 mg/dL (1.8-2.4)
[2023-03-02 06:34] LABS: ANION GAP 14.2 (8-16); CALCIUM 9.5 mg/dL (8.5-10.1); CARBON DIOXIDE 26.8 mmol/L (21-32); CREATININE 1.3 mg/dL (0.6-1.3)
[2023-03-02] MEDS: FUROSEMIDE 40 MG/4 ML VIAL IVP SCH (08:20)
[2023-03-02] MEDS: carvediloL 3.125 MG TAB PO SCH (08:21)
[2023-03-02] MEDS ORDERED: ECOTRIN 81 MG TABEC PO SCH (09:00)
[2023-03-02] MEDS ORDERED: ATORVASTATIN 20 MG TAB PO SCH (09:00)
[2023-03-02] MEDS ORDERED: LOSARTAN 25 MG TAB PO SCH (09:00)
[2023-03-02] MEDS ORDERED: PRED20TA5 PO (11:00)
[2023-03-02] MEDS ORDERED: FURO-570 PO (11:00)
== END 2023-03-02 12:30 | disposition home or self-care (01) | DRG 291 ==
LOC: MED 13:50 → MMU 18:17 → MTU 20:13
PROVIDERS: ADMIT Student in an Organized Health Care Education/Training Program; ATTEND Student in an Organized Health Care Education/Training Program
DX: I13.0 Hypertensive heart and chronic kidney disease with heart failure and stage 1 through stage 4 chronic kidney disease, or unspecified chronic kidney disease (principal); I50.23 Acute on chronic systolic (congestive) heart failure; J96.01 Acute respiratory failure with hypoxia; I42.0 Dilated cardiomyopathy; D72.829 Elevated white blood cell count, unspecified; N18.9 Chronic kidney disease, unspecified; D64.9 Anemia, unspecified; E11.22 Type 2 diabetes mellitus with diabetic chronic kidney disease; Z79.84 Long term (current) use of oral hypoglycemic drugs; Z79.82 Long term (current) use of aspirin; Z79.899 Other long term (current) drug therapy; Z95.0 Presence of cardiac pacemaker; I25.2 Old myocardial infarction; Z79.4 Long term (current) use of insulin
CPT/HCPCS: 36415; 36600; 71045; 80048; 80076; 82803; 83605; 83735; 83880; 84100; 84484; 85025; 87040; 87081; 93005; 94640; 96374; 99285; J1644; J1940; Q0092